=== PATIENT | female | born 1950 | race Caucasian/White ===

== ENCOUNTER 2020-06-16 23:27 | Emergency (ER) | payer MEDICARE, OTHER ==
[~2020-06-16] VITALS: Ht 162.6 cm; Wt 94.1 kg
[~2020-06-16 23:27] MED LIST: BUPR-86; CHLO1CAP; EXEN5PEN2; FLUO20CA19; HYDR25TA6; PIOG15TA22; VALS160T3
--- NOTE | 2020-06-17 | NUR ---
PT RESTING COMFORTABLY IN [facility] AT THIS TIME; NADN. PT ATTACHED TO WIRE M[employer] OPERATOR AND VS MONITORS. VSS AT THIS TIME. YAEL RICE, AT BS FOR PT HISTORY AND ASSESSMENT. PT EDUCATED ON ER PROCESS AND POC AND VERBALIZES UNDERSTANDING. CALL LIGHT IS WITHIN REACH. PIV ACCESS ESTABLISHED AT THIS TIME AND LABS DRAWN AND COLLECTED TO LAB.
[2020-06-17 00:22] LABS: BASOPHILS # (AUTO) 0.04 x10^3/uL (0-0.1); BASOPHILS % (AUTO) 0 % (0-1); EOSINOPHILS # (AUTO) 0.07 x10^3/uL (0-0.4); EOSINOPHILS % (AUTO) 1 % (1-7); LYMPHOCYTES # (AUTO) 1.74 x10^3/uL (1-3.4); LYMPHOCYTES % (AUTO) 20 % (22-44); MD NO; MEAN CORPUSCULAR HEMOGLOBIN 29.5 pg (27.0-34.8); MEAN CORPUSCULAR HGB CONC 33.7 g/dL (32.4-35.8); MEAN CORPUSCULAR VOLUME 87.4 fL (80-100); MEAN PLATELET VOLUME 8.7 fL (7.4-10.4); MONOCYTES # (AUTO) 0.48 x10^3/uL (0.2-0.8); MONOCYTES % (AUTO) 6 % (2-9); NEUTROPHILS # (AUTO) 6.28 x10^3/uL (1.8-6.8); NEUTROPHILS % (AUTO) 73 % (42-75); PLATELET COUNT 220 x10^3/uL (130-400); RED BLOOD COUNT 5.85 x10^6/uL (3.82-5.3); RED CELL DISTRIBUTION WIDTH 12.8 % (9.6-15.2)
[2020-06-17] MEDS ORDERED: MORPHINE SULFATE 4 MG/ML, 1ML ONE (00:26)
[2020-06-17] MEDS ORDERED: ONDANSETRON 2MG/ML, 2ML ONE (00:26)
[2020-06-17] MEDS ORDERED: SODIUM CHLORIDE FLUSH 10ML SYR IVF ONE (00:30)
[2020-06-17] MEDS ORDERED: MORPHINE SULFATE 4 MG/ML, 1ML IVPush PRN (00:30)
[2020-06-17] MEDS ORDERED: ONDANSETRON 2MG/ML, 2ML IVPush ONE (00:30)
--- NOTE | 2020-06-17 00:32 | NUR ---
PT MEDICATED PER MAR. PT VERBALIZES UNDERSTANDING OF NEED FOR UA.
[2020-06-17 00:33] LABS: ALANINE AMINOTRANSFERASE 26 U/L (12-78); ALBUMIN 4.1 g/dL (3.4-5.0); ANION GAP 11 mmol/L (5-15); CALCIUM 8.9 mg/dL (8.5-10.1); CHLORIDE 101 mmol/L (98-107); CREATININE 0.65 mg/dL (0.55-1.02)
[2020-06-17 00:36] LABS: ALKALINE PHOSPHATASE 124 U/L (45-117); BILIRUBIN,TOTAL 0.5 mg/dL (0.2-1.0); TOTAL PROTEIN 7.3 g/dL (6.4-8.2)
[2020-06-17] MEDS ORDERED: SODIUM CHLORIDE 0.9% 1,000ML IVBOLUS ONE (01:00)
--- NOTE | 2020-06-17 01:50 | NUR ---
US COMPLETED AT BS
--- NOTE | 2020-06-17 02:40 | NUR ---
BREAK RN: ULTRASOUND RESULTED. URINE SAMPLE OBTAINED AND SENT TO LAB
[2020-06-17 02:46] LABS: MICROSCOPIC NOT IND
--- NOTE | 2020-06-17 02:49 | NUR ---
ERP AT BEDSIDE FOR RE-EVALUATION.
[2020-06-17] MEDS ORDERED: GABAPENTIN 300 MG CAPSULE ONE (03:25)
--- NOTE | 2020-06-17 03:29 | NUR ---
pt medicated per dec. pt vss and updated in emr.
[2020-06-17] MEDS ORDERED: GABAPENTIN 300 MG CAPSULE PO ONE (03:30)
[2020-06-17 03:31] VITALS: BP 184/118
--- NOTE | 2020-06-17 03:36 | NUR ---
pt d/c with d/c summary and scripts. pt educated on d/c instructions by this rn for approximately 15 minutes. all questions answered. pt ambulates to registration desk with assistance of stroller. pt denies any other needs pertaining to this visit and verbalizes understanding of op f/u instructions.
== END 2020-06-17 04:20 | disposition home or self-care (01) ==
LOC: ED 06-17 01:51
DX: R10.11 Right upper quadrant pain (principal); E11.9 Type 2 diabetes mellitus without complications; I10 Essential (primary) hypertension; R00.0 Tachycardia, unspecified
CPT/HCPCS: 36415; 76700; 80053; 81003; 83690; 85025; 93005; 96374; 96375; 99285; J2270; J2405; J7030